=== PATIENT | male | born 1955 | race Caucasian/White ===

== ENCOUNTER 2018-10-02 06:25 | Inpatient (IN) | payer OTHER ==
[~2018-10-02] VITALS: Ht 170.2 cm; Wt 77.5 kg
[2018-10-02] MEDS ORDERED: ACETAMINOPHEN 325 MG TABLET ONE (06:50)
[2018-10-02] MEDS ORDERED: ACETAMINOPHEN 325 MG TABLET PO ONE (07:00)
[2018-10-02] MEDS ORDERED: SODIUM CHLORIDE FLUSH 10ML SYR IVF ONE (07:00)
[2018-10-02] MEDS ORDERED: BUDE10.22 INH (07:02)
[2018-10-02] MEDS ORDERED: ALBUTEROL/IPRATROPIUM 2.5MG/0.5MG, 3 ML ONE ×2 (07:02→07:48)
[2018-10-02] MEDS ORDERED: ALBU8.5H8 INH (07:02)
[2018-10-02] MEDS: ALBUTEROL/IPRATROPIUM 2.5MG/0.5MG, 3 ML NPPB SCH ×5 (07:02→20:52)
[2018-10-02 07:13] LABS: BASOPHILS # (AUTO) 0.01 x10^3/uL (0-0.1); BASOPHILS % (AUTO) 0 % (0-1); EOSINOPHILS # (AUTO) 0.01 x10^3/uL (0-0.4); EOSINOPHILS % (AUTO) 0 % (1-7); LYMPHOCYTES % (AUTO) 13 % (22-44); MD NO; MEAN CORPUSCULAR HEMOGLOBIN 33.7 pg (27.5-34.5); MEAN CORPUSCULAR HGB CONC 33.7 g/dL (33.2-36.2); MEAN CORPUSCULAR VOLUME 100.1 fL (81-97); MEAN PLATELET VOLUME 7.4 fL (7.4-10.4); MONOCYTES % (AUTO) 11 % (2-9); NEUTROPHILS # (AUTO) 3.56 x10^3/uL (1.8-6.8); NEUTROPHILS % (AUTO) 76 % (42-75); PLATELET COUNT 197 x10^3/uL (130-400); RED BLOOD COUNT 4.93 x10^6/uL (4.38-5.82)
[2018-10-02 07:15] LABS: RAPID INFLUENZA A Negative (Negative); RAPID INFLUENZA B Negative (Negative)
[2018-10-02 07:26] LABS: ALBUMIN 4.5 g/dL (3.4-5.0); ANION GAP 11 mmol/L (5-15); CALCIUM 9.5 mg/dL (8.5-10.1); CHLORIDE 105 mmol/L (98-107); CREATININE 1.34 mg/dL (0.7-1.3)
[2018-10-02] MEDS ORDERED: ALBUTEROL/IPRATROPIUM 2.5MG/0.5MG, 3 ML NPPB ONE (07:30)
[2018-10-02] MEDS ORDERED: SODIUM CHLORIDE 0.9% 1,000 ML IV SCH (09:34)
[2018-10-02] MEDS ORDERED: hydrALAzine 20 MG/ML, 1ML IVPush PRN (10:00)
[2018-10-02] MEDS ORDERED: LABETALOL 5MG/ML, 20ML IVPush PRN (10:00)
[2018-10-02] MEDS ORDERED: ACETAMINOPHEN 325 MG TABLET PO PRN (10:00)
[2018-10-02] MEDS ORDERED: ONDANSETRON ODT 4 MG PO PRN (10:00)
[2018-10-02] MEDS ORDERED: TEMPLATE NON-FORMULARY MED. (Albuterol Sulfate (Proair Hfa) 2 PUFF(S)) INH SCH (11:00)
[2018-10-02] MEDS: methylPREDNISolone SOD SUCC 125 MG/2 ML IVPush SCH ×3 (11:04→22:48)
[2018-10-02] MEDS: HEPARIN 5,000 UNITS/ML, 1ML SQ SCH ×2 (11:05→18:25)
[2018-10-02] MEDS: GUAIFENESIN ER 600 MG TABLET PO SCH ×2 (11:05→21:19)
[2018-10-02 11:34] VITALS: BP 115/71
[2018-10-02] MEDS ORDERED: ALBUTEROL SULFATE INH SCH (11:44)
[2018-10-02 12:40] VITALS: BP 112/76
[2018-10-02] MEDS ORDERED: ALBUTEROL/IPRATROPIUM 2.5MG/0.5MG, 3 ML NPPB PRN (14:00)
[2018-10-02 20:00] VITALS: BP 120/65
[2018-10-02] MEDS: BUDESONIDE 0.5 MG/2 ML INHA NPPB SCH (20:52)
[2018-10-02] MEDS ORDERED: BENZONATATE 100 MG CAPSULE ONE (21:17)
[2018-10-02] MEDS ORDERED: LORazepam 0.5MG TABLET ONE (21:17)
[2018-10-02] MEDS: BENZONATATE 100 MG CAPSULE PO PRN (21:19)
[2018-10-02] MEDS: LORazepam 0.5MG TABLET PO PRN (21:19)
[2018-10-03 02:25] VITALS: BP 137/76
[2018-10-03] MEDS: HEPARIN 5,000 UNITS/ML, 1ML SQ SCH ×3 (02:57→18:46)
[2018-10-03] MEDS: LORazepam 0.5MG TABLET PO PRN (04:56)
[2018-10-03] MEDS: BENZONATATE 100 MG CAPSULE PO PRN ×2 (04:56→13:40)
[2018-10-03] MEDS: methylPREDNISolone SOD SUCC 125 MG/2 ML IVPush SCH ×4 (04:56→23:06)
[2018-10-03] MEDS: ALBUTEROL/IPRATROPIUM 2.5MG/0.5MG, 3 ML NPPB SCH ×5 (07:06→22:00)
[2018-10-03] MEDS: BUDESONIDE 0.5 MG/2 ML INHA NPPB SCH ×2 (07:06→21:00)
[2018-10-03] MEDS: GUAIFENESIN ER 600 MG TABLET PO SCH ×2 (08:39→20:37)
[2018-10-03 08:43] VITALS: BP 111/68
[2018-10-03] MEDS ORDERED: Budesonide/Formoterol Fumarate (Symbicort 80-4.5 Mcg Inhaler) INH SCH (09:00)
[2018-10-03 13:39] VITALS: BP 121/72
[2018-10-03 19:01] VITALS: BP 118/77
[2018-10-04 01:00] VITALS: BP 117/56
[2018-10-04] MEDS: HEPARIN 5,000 UNITS/ML, 1ML SQ SCH ×3 (02:47→20:33)
[2018-10-04] MEDS: methylPREDNISolone SOD SUCC 125 MG/2 ML IVPush SCH ×3 (04:59→19:23)
[2018-10-04] MEDS: ALBUTEROL/IPRATROPIUM 2.5MG/0.5MG, 3 ML NPPB SCH ×5 (07:14→22:00)
[2018-10-04] MEDS: GUAIFENESIN ER 600 MG TABLET PO SCH ×2 (08:07→20:33)
[2018-10-04 08:38] VITALS: BP 120/75
[2018-10-04] MEDS ORDERED: methylPREDNISolone SOD SUCC 125 MG/2 ML IV SCH (11:30)
[2018-10-04] MEDS: BUDESONIDE 0.5 MG/2 ML INHA NPPB SCH ×2 (11:31→18:59)
[2018-10-04 13:07] VITALS: BP 123/74
[2018-10-04 18:25] VITALS: BP 116/71
[2018-10-05 00:59] VITALS: BP 127/74
[2018-10-05] MEDS: methylPREDNISolone SOD SUCC 125 MG/2 ML IVPush SCH (01:21)
[2018-10-05] MEDS: BENZONATATE 100 MG CAPSULE PO PRN ×2 (04:05→16:35)
[2018-10-05] MEDS: HEPARIN 5,000 UNITS/ML, 1ML SQ SCH ×2 (04:17→14:05)
[2018-10-05 05:44] LABS: ANION GAP 7 mmol/L (5-15); CALCIUM 9.5 mg/dL (8.5-10.1); CHLORIDE 103 mmol/L (98-107)
[2018-10-05 05:46] LABS: BASOPHILS % (AUTO) 0 % (0-1); CREATININE 0.91 mg/dL (0.7-1.3); EOSINOPHILS % (AUTO) 0 % (1-7); LYMPHOCYTES # (AUTO) 0.32 x10^3/uL (1-3.4); LYMPHOCYTES % (AUTO) 3 % (22-44); MD NO; MEAN CORPUSCULAR HEMOGLOBIN 35.2 pg (27.5-34.5); MEAN CORPUSCULAR HGB CONC 34.6 g/dL (33.2-36.2); MEAN CORPUSCULAR VOLUME 101.7 fL (81-97); MEAN PLATELET VOLUME 8.4 fL (7.4-10.4); MONOCYTES # (AUTO) 0.35 x10^3/uL (0.2-0.8); MONOCYTES % (AUTO) 4 % (2-9); NEUTROPHILS # (AUTO) 9.07 x10^3/uL (1.8-6.8); NEUTROPHILS % (AUTO) 93 % (42-75); PLATELET COUNT 167 x10^3/uL (130-400); RED BLOOD COUNT 4.23 x10^6/uL (4.38-5.82); RED CELL DISTRIBUTION WIDTH 13.2 % (9.4-14.8)
[2018-10-05 07:10] VITALS: BP 118/73
[2018-10-05] MEDS: BUDESONIDE 0.5 MG/2 ML INHA NPPB SCH ×2 (07:15→18:50)
[2018-10-05] MEDS: ALBUTEROL/IPRATROPIUM 2.5MG/0.5MG, 3 ML NPPB SCH ×5 (07:15→19:49)
[2018-10-05] MEDS ORDERED: methylPREDNISolone SOD SUCC 40 MG/ML IVPush SCH (09:00)
[2018-10-05] MEDS ORDERED: PRED10TA PO (09:21)
[2018-10-05] MEDS: GUAIFENESIN ER 600 MG TABLET PO SCH (09:56)
[2018-10-05 15:59] VITALS: BP 135/74
[2018-10-05 18:23] VITALS: BP 128/75
[2018-10-05 20:19] VITALS: BP 136/74
[2018-10-06] MEDS ORDERED: ALBUTEROL/IPRATROPIUM 2.5MG/0.5MG, 3 ML NPPB SCH (07:00)
== END 2018-10-05 20:30 | disposition home or self-care (01) | DRG 189 ==
LOC: ED 08:46 → EDIP 09:34 → 4NOR 10:30
PROVIDERS: ADMIT Internal Medicine; ATTEND Internal Medicine
DX: J96.01 Acute respiratory failure with hypoxia (principal); J44.1 Chronic obstructive pulmonary disease with (acute) exacerbation; F17.210 Nicotine dependence, cigarettes, uncomplicated; Z87.01 Personal history of pneumonia (recurrent); Z79.899 Other long term (current) drug therapy; Z88.5 Allergy status to narcotic agent
CPT/HCPCS: 36415; 84145; 87400; 99285; J7620; J7626; 71045; 80048; 82040; 83605; 83735; 85025; 87040; 87070; 87205; 94640; G0378; J1644; J2930; J7030; J7512